=== PATIENT | female | born 2000 | race Caucasian/White ===

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

== ENCOUNTER 2020-06-17 21:04 | Emergency (ER) | payer BC ==
--- OUTSIDE RECORDS SUMMARY | 2020-06-17 21:06 | XMS REPORT | Continuity of Care Document ---
:[address] [facility] Address [address] [place] [address] Dr. Acosta [address] [place] [address] Care Team Providers Name Role Phone Brayden St DO Attending Clinician Lonnie Arteaga MD Attending Clinician Doctor Unassigned, Name Attending Clinician Unavailable Leon REBOLLAR Attending Clinician Unavailable Pob1, Care Clinic Attending Clinician Unavailable Beau RN, L Attending Clinician Unavailable Problems This patient has no known problems. Allergies, Adverse Reactions, Alerts This patient has no known allergies or adverse reactions. Medications This patient has no known medications. Procedures This patient has no known procedures. Encounters Start End Encounter Admission Attending Care Care Encounter Source Date/Time Date/Time Type Type Clinicians Facility Department ID 2020-04-30 2020-04-30 Patient Maciel [facility] [id number] 00:00:00 00:00:00 Outreach Brayden ALEX [id number] Bautista [facility] [id number] [place] [id number] 2020-03-24 2020-03-24 Emergency Jenni [facility] [id number] 00:42:00 01:47:00 Louie Rich [id number] [place] [id number] [place] [id number] 2020-03-24 2020-03-24 Orders Doctor MAURER [id number] 00:00:00 00:00:00 Only UnassSAMAN garcia [id number] [place] [facility] [id number] 2020-03-23 2020-03-23 Nurse LIBERTAD Quintero [id number] 00:00:00 00:00:00 Triage Osman HARDWICKY [id number] [facility] [id number] 2019-05-25 2019-05-25 Urgent Pob1, Acute [facility] [id number] 08:03:36 08:23:36 [facility] [id number] [place] [id number] [facility] [id number] [place] [address] 2019-05-25 2019-05-25 Telephone LIBERTAD Yanez [id number] 00:00:00 00:00:00 Lori Justice DAVISON [id number] [facility] [id number] Results This patient has no known results.
[2020-06-17 22:48] LABS: Urine Blood Negative (Negative); Urine Glucose Negative (Negative); Urine Protein Negative (Negative); Urine Specific Gravity >=1.030 (1.005-1.030); Urine pH 6.5 (5.0-7.0)
[2020-06-17] MEDS ORDERED: NA CHLORIDE 0.9% 1,000 ML ONE (22:49)
[2020-06-17] MEDS ORDERED: ONDANSETRON 4 MG/2 ML VIAL ONE (22:50)
[2020-06-17 23:11] LABS: Basophils % 0.3 % (0-1.3); Hematocrit 34.1 % (36.0-45.0); Lymphocytes % 25.5 % (15.3-44.8); MPV 9.5 fL (7.6-11.3); RBC Red Blood Cell Count 3.73 M/uL (3.86-4.86)
[2020-06-17 23:39] LABS: BUN Blood Urea Nitrogen 15 mg/dL (7-18); Bicarbonate 26 mmol/L (21-32); Glucose Level 92 mg/dL (74-106); HCG, Quantitative 147270 mIU/mL (1-3); Lipase 95 U/L (73-393); Potassium 3.9 mmol/L (3.5-5.1); Sodium Level 140 mmol/L (136-145)
--- NOTE | 2020-06-18 00:10 | EDPHYS ---
Physician Documentation [facility] Name: Cherry Benedict Age: 19 yrs Sex: Female : 2000 Arrival Date: 06/17/2020 Time: 21:05 Bed 13 Private MD: ED Physician Osman Nagel HPI: 06/17 22:13 This 19 yrs old Female presents to ER via Ambulatory with complaints of [facility] Abdominal Pain. 22:13 The patient presents to the emergency department with abdominal pain. The estimated [facility] gestational age is 14 weeks. course: care: private OB physician, Dr. mistry. Previous pregnancies: the patient has never been . Associated signs and symptoms: The patient has no apparent associated signs or symptoms. The patient has not experienced similar symptoms in the past. CARD PLACER: 21:36 1, LMP 03/24/2020 ca1 22:13 1, Full Term 0, Premature 0, 0, Living 0 nilson Historical: - Allergies: 21:36 No Known Allergies; ca1 - Home Meds: 21:36 None [Active]; ca1 - PMHx: 21:36 Asthma; chronic pneumonia; ca1 - PSHx: 21:36 None; ca1 - Immunization history:: Client reports having NOT received the Covid vaccine. Flu vaccine is not up to date. - Social history:: Smoking status: Patient/guardian denies using tobacco, the patient reports quitting approximately 2 years ago. ROS: 22:15 Constitutional: Negative for fever, chills, and weight loss, Eyes: Negative for injury, nilson pain, redness, and discharge, ENT: Negative for injury, pain, and discharge, Neck: Negative for injury, pain, and swelling, Cardiovascular: Negative for chest pain, palpitations, and edema, Respiratory: Negative for shortness of breath, cough, wheezing, and pleuritic chest pain, Abdomen/GI: Negative for abdominal pain, nausea, vomiting, diarrhea, and constipation, Back: Negative for injury and pain, : Negative for injury, bleeding, discharge, and swelling, MS/Extremity: Negative for injury and deformity, Skin: Negative for injury, rash, and discoloration, Neuro: Negative for headache, weakness, numbness, tingling, and seizure, Psych: Negative for depression, anxiety, suicide ideation, homicidal ideation, and hallucinations, Allergy/Immunology: Negative for hives, rash, and allergies, Endocrine: Negative for neck swelling, polydipsia, polyuria, polyphagia, and marked weight changes, Hematologic/Lymphatic: Negative for swollen nodes, abnormal bleeding, and unusual bruising. Exam: 22:15 Constitutional: This is a well developed, well nourished patient who is awake, alert, nilson and in no acute distress. Head/Face: Normocephalic, atraumatic. Eyes: Pupils equal round and reactive to light, extra-ocular motions intact. Lids and lashes normal. Conjunctiva and sclera are non-icteric and not injected. Cornea within normal limits. Periorbital areas with no swelling, redness, or edema. ENT: Nares patent. No nasal discharge, no septal abnormalities noted. Tympanic membranes are normal and external auditory canals are clear. Oropharynx with no redness, swelling, or masses, exudates, or evidence of obstruction, uvula midline. Mucous membranes moist. Neck: Trachea midline, no thyromegaly or masses palpated, and no cervical lymphadenopathy. Supple, full range of motion without nuchal rigidity, or vertebral point tenderness. No Meningismus. Chest/axilla: Normal chest wall appearance and motion. Nontender with no deformity. No lesions are appreciated. Cardiovascular: Regular rate and rhythm with a normal S1 and S2. No gallops, murmurs, or rubs. Normal PMI, no JVD. No pulse deficits. Respiratory: Lungs have equal breath sounds bilaterally, clear to auscultation and percussion. No rales, rhonchi or wheezes noted. No increased work of breathing, no retractions or nasal flaring. Abdomen/GI: Soft, non-tender, with normal bowel sounds. No distension or tympany. No guarding or rebound. No evidence of tenderness throughout. Back: No spinal tenderness. No costovertebral tenderness. Full range of motion. Skin: Warm, dry with normal turgor. Normal color with no rashes, no lesions, and no evidence of cellulitis. MS/ Extremity: Pulses equal, no cyanosis. Neurovascular intact. Full, normal range of motion. Neuro: Awake and alert, GCS 15, oriented to person, place, time, and situation. Cranial nerves II-XII grossly intact. Motor strength 5/5 in all extremities. Sensory grossly intact. Cerebellar exam normal. Normal gait. Psych: Awake, alert, with orientation to person, place and time. Behavior, mood, and affect are within normal limits. Vital Signs: 21:33 BP 114 / 79; Pulse 77; Resp 16 S; Temp 97.6(TE); Pulse Ox 99% on R/A; Weight 54.43 kg ca1 (R); Height 5 ft. 4 in. (162.56 cm) (R); Pain 05/18; 06/18 01:02 BP 117 / 78; Pulse 72; Resp 16; Pulse Ox 98% on R/A; jm8 06/17 21:33 Body Mass Index 20.60 (54.43 kg, 162.56 cm) ca1 MDM: 06/17 22:07 Patient medically screened. [facility] 22:16 Differential diagnosis: Nonspecific abd pain, pancreatitis, Data reviewed: vital signs, [facility] nurses notes, lab test result(s), EKG, radiologic studies, plain films. Data interpreted: intellectual property legal assistant: rate is 77 beats/min, rhythm is regular, Pulse oximetry: on room air. Counseling: I had a detailed discussion with the patient and/or guardian regarding: the historical points, exam findings, and any diagnostic results supporting the discharge/admit diagnosis, lab results, radiology results, the need for outpatient follow up, for definitive care, an OB/Gyne specialist. 06/17 22:13 Order name: Quantitative Hcg; Complete Time: 00:09 [facility] 06/17 22:13 Order name: Abo/rh Typing [facility] 06/17 22:13 Order name: Basic Metabolic Panel; Complete Time: 00:09 [facility] 06/17 22:13 Order name: CBC with Diff; Complete Time: 23:20 [facility] 06/17 22:15 Order name: Lipase; Complete Time: 00:09 [facility] 06/17 22:47 Order name: Urine Dipstick-Ancillary; Complete Time: 22:51 EDMS 06/17 22:13 Order name: Urine Test (obtain specimen); Complete Time: 22:50 [facility] 06/17 22:13 Order name: IV Saline Lock; Complete Time: 22:41 [facility] 06/17 22:13 Order name: Labs collected and sent; Complete Time: 22:41 [facility] 06/17 22:13 Order name: US Transvaginal Ob [facility] 06/18 00:10 Order name: Urine --Ancillary (enter results) tt3 06/18 00:11 Order name: Urine --Ancillary [facility] 06/17 22:13 Order name: NPO; Complete Time: 22:41 [facility] 06/17 22:13 Order name: Urine Dipstick-Ancillary (obtain specimen); Complete Time: 22:50 [facility] Administered Medications: Discontinued: NS 0.9% 1000 ml IV at 1 bolus Per protocol; 1000 mL bolus 22:48 Drug: Zofran (Ondansetron) 4 mg Route: IVP; Site: right antecubital; [facility] 06/18 01:03 Follow up: Response: No adverse reaction [facility] 06/17 22:49 Drug: NS 0.9% 1000 ml Route: IV; Rate: 1 bolus; Site: right forearm; 8 Disposition: 06/18/20 00:09 Discharged to Home. Impression: Vomiting of , unspecified, related conditions, unspecified, second trimester, related conditions, unspecified, first trimester. - Condition is Stable. - Discharge Instructions: Hyperemesis Gravidarum, Nausea and Vomiting, Adult, Nausea and Vomiting, Adult, Mjtf-ln-Iyme, Abdominal Pain During , Zwqg-tz-Yyez, Second Trimester of , Dolu-hh-Dacc. - Prescriptions for Diclegis 10- 10 mg Oral tablet,delayed release (DR/EC) - take 1 tablet by ORAL route 3 times per day and 2 tablets at bedtime; 60 tablet. Zofran 4 mg Oral Tablet - take 1 tablet by ORAL route every 12 hours As needed; 20 tablet. Vitamin 27- 0.8 mg Oral Tablet - take 1 tablet by ORAL route once daily; 30 tablet. - Medication Reconciliation Form, Thank You Letter, Antibiotic Education, Prescription Opioid Use form. - Follow up: Private Physician; When: 2 - 3 days; Reason: Recheck today's complaints, Continuance of care, Re-evaluation by your physician. Follow up: Remington Mistry; When: 2 - 3 days; Reason: Recheck today's complaints, Re-evaluation by your physician. - Problem is new. - Symptoms have improved. Signatures: Dispatcher [employer] [facility] Osman Nagel MD MD cha Acob, Cheryl, RN RN ca1 Malcaba, Joseph, RN RN jm8 Corrections: (The following items were deleted from the chart) 06/18 01:02 00:09 06/18/2020 00:09 Discharged to Home. Impression: Vomiting of , jm8 unspecified; related conditions, unspecified, second trimester; related conditions, unspecified, first trimester. Condition is Stable. Discharge Instructions: Hyperemesis Gravidarum, Nausea and Vomiting, Adult, Nausea and Vomiting, Adult, Idzb-wm-Aavh, Abdominal Pain During , Etql-lb-Yqha, Second Trimester of , Xcdp-oz-Kzzy. Prescriptions for Diclegis 10-10 mg Oral tablet,delayed release (DR/EC) - take 1 tablet by ORAL route 3 times per day and 2 tablets at bedtime; 60 tablet, Zofran 4 mg Oral Tablet - take 1 tablet by ORAL route every 12 hours As needed; 20 tablet, Vitamin 27-0.8 mg Oral Tablet - take 1 tablet by ORAL route once daily; 30 tablet. and Forms are Medication Reconciliation Form, Thank You Letter, Antibiotic Education, Prescription Opioid Use. Follow up: Private Physician; When: 2 - 3 days; Reason: Recheck today's complaints, Continuance of care, Re-evaluation by your physician. Follow up: Remington Mistry; When: 2 - 3 days; Reason: Recheck today's complaints, Re-evaluation by your physician. Problem is new. Symptoms have improved. nilson
--- NOTE | 2020-06-18 00:10 | ER ---
Nurse's Notes [facility] Name: Cherry Benedict Age: 19 yrs Sex: Female : 2000 Arrival Date: 06/17/2020 Time: 21:05 Bed 13 Private MD: Diagnosis: Vomiting of , unspecified; related conditions, unspecified, second trimester; related conditions, unspecified, first trimester Presentation: 06/17 21:33 Chief complaint: Patient states: 12 - 14 wks , c/o suprapubic pain since ca1 yesterday. Denies vaginal bleeding. Reports burning with urination, urgency and frequency. Coronavirus screen: Client denies travel out of the [place] in the last 14 days. At this time, the client does not indicate any symptoms associated with coronavirus-19. Ebola Screen: Patient negative for fever greater than or equal to 101.5 degrees Fahrenheit, and additional compatible Ebola Virus Disease symptoms Patient denies exposure to infectious person. Patient denies travel to an Ebola-affected area in the 21 days before illness onset. No symptoms or risks identified at this time. Initial Sepsis Screen: Does the patient meet any 2 criteria? No. Patient's initial sepsis screen is negative. Does the patient have a suspected source of infection? No. Patient's initial sepsis screen is negative. Risk Assessment: Do you want to hurt yourself or someone else? Patient reports no desire to harm self or others. Onset of symptoms was June 17, 2020. 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 Flu vaccine is not up to date. - Social history:: Smoking status: Patient/guardian denies using tobacco, the patient reports quitting approximately 2 years ago. Screenin:52 Abuse screen: Denies threats or abuse. Denies injuries from another. jm8 22:54 Nutritional screening: No deficits noted. Tuberculosis screening: No symptoms or risk jm8 factors identified. Fall Risk None identified. Assessment: 22:51 General: Appears in no apparent distress. comfortable, Behavior is calm, cooperative, jm8 appropriate for age. Pain: Complains of pain in suprapubic Pain currently is 4 out of 10 on a pain scale. Quality of pain is described as aching, Also complains of no other associated symptoms. Neuro: No deficits noted. Neuro: Level of Consciousness is awake, alert, obeys commands, Oriented to person, place, time. Cardiovascular: No deficits noted. Respiratory: No deficits noted. GI: Bowel sounds present X 4 quads. Abd is soft and non tender X 4 quads. Reports lower abdominal pain, nausea. : No deficits noted. EENT: No deficits noted. Derm: No deficits noted. Skin is intact, is healthy with good turgor, Skin is pink, warm \T\ dry. normal, Skin temperature is warm. Musculoskeletal: No deficits noted. Vital Signs: 21:33 BP 114 / 79; Pulse 77; Resp 16 S; Temp 97.6(TE); Pulse Ox 99% on R/A; Weight 54.43 kg ca1 (R); Height 5 ft. 4 in. (162.56 cm) (R); Pain 05/18; 06/18 01:02 BP 117 / 78; Pulse 72; Resp 16; Pulse Ox 98% on R/A; jm8 06/17 21:33 Body Mass Index 20.60 (54.43 kg, 162.56 cm) ca1 ED Course: 06/17 21:05 Patient arrived in ED. am4 21:35 Triage completed. ca1 21:52 Nathan Richards PA is PHCP. jmm 21:52 Osman Nagel MD is Attending Physician. jmm 22:07 Osman Nagel MD is Attending Physician. [facility] 22:37 Transvaginal Ob In Process Unspecified. EDMS 22:53 Arm band placed on right wrist. jm8 22:53 Inserted saline lock: 20 gauge in right forearm, using aseptic technique. jm8 22:53 No provider procedures requiring assistance completed. jm8 22:54 Patient has correct armband on for positive identification. Bed in low position. Call jm8 light in reach. Side rails up X2. Adult w/ patient. 06/18 00:09 Remington Mistry MD is Referral Physician. nilson 01: IV discontinued, intact, bleeding controlled, No redness/swelling at site. john Administered Medications: Discontinued: NS 0.9% 1000 ml IV at 1 bolus Per protocol; 1000 mL bolus 06/17 22:48 Drug: Zofran (Ondansetron) 4 mg Route: IVP; Site: right antecubital; john 06/18 01:03 Follow up: Response: No adverse reaction john 06/17 22:49 Drug: NS 0.9% 1000 ml Route: IV; Rate: 1 bolus; Site: right forearm; [email or web address] Outcome: 06/18 00:09 Discharge ordered by . nilson 01:01 Discharged to home ambulatory. john 01:01 Condition: good 01:01 Discharge instructions given to patient, family, Instructed on discharge instructions, follow up and referral plans. medication usage, Demonstrated understanding of instructions, follow-up care, medications, Prescriptions given X 3. 01:02 Patient left the ED. jm8 Signatures: Dispatcher [employer] EDOsman Kapadia MD MD cha Mickail, Joel, PA PA jmm Acob, Cheryl, KETURAH RN Lori Bowman Joseph, RN RN john
[2020-06-18 00:21] LABS: Urine Specific Gravity/Preg >1.030 (1.005-1.030)
[2020-06-18 01:46] VITALS: TEMP 97.6
[2020-06-18 01:47] VITALS: BP 117/78; O2SAT 98
--- NOTE | 2020-06-18 08:00 | RAD REPORT ---
EXAM DESCRIPTION: US - Transvaginal OB - 06/17/2020 10:37 pm CLINICAL HISTORY: with abdominal pain COMPARISON: None. FINDINGS: The uterus measures 10 x 6 x 5 centimeters . A pole is present within the endometriu m measuring 3.7 centimeters. Cardiac activity 164 beats per minute. Neither ovary was visualized secondary to overlying bowel gas. The right and left at adnexa appear un remarkable. . Small amount of free fluid IMPRESSION: Single live intrauterine with estimated gestational 10 weeks 2 days CASSANDRA 2020
== END 2020-06-18 01:02 | disposition home or self-care (01) ==
LOC: ER 21:04
DX: O21.9 Vomiting of pregnancy, unspecified (principal); Z3A.10 10 weeks gestation of pregnancy
CPT/HCPCS: 85025; 80048; 36415; 86900; 81025; 86901; 84702; 81003; 83690; 76817; J7030; J2405; 96374; 99284